=== PATIENT | male | born 1985 | race Caucasian/White ===

== ENCOUNTER 2019-01-06 13:40 | Emergency (ER) | payer SELFPAY ==
[2019-01-06] MEDS ORDERED: Diph,Pert(Acell),Tet Vac 0.5 ML SYR IM ONE (14:19)
--- NOTE | 2019-01-06 14:19 | Emergency Department Record ---
History of Present Illness - General Chief Complaint: Laceration(s) Stated Complaint: LACERATION Time Seen by Provider: 01/06/19 14:17 Source: Patient Mode of Arrival: Ambulatory Limitations: No limitations - History of Present Illness Initial Commments: Laceration to the left index finger cutting with a razor knife at work today just [employer]. Right hand dominate. Bleeding at work with dressing applied. Last Td unknown. Place: Home Context: Accidental Associated Symptoms: None Treatments Prior to Arrival: Bandage - Hilario Coma Scale Eye Response: (4) Open spontaneously Motor Response: (6) Obeys commands Verbal Response: (5) Oriented Hilario Total: 15 - Related Data Hx Tetanus Toxoid Vaccination: No Patient Tetanus UTD (within 5 yrs): No Home Medications Medication Instructions Recorded Confirmed Last Taken Bupropion HCl [Wellbutrin Xl] 300 mg PO DAILY 01/06/19 01/06/19 Unknown Hydroxyzine HCl 10 mg PO QHS 01/06/19 01/06/19 Unknown Olanzapine [Zyprexa] 7.5 mg PO QHS 01/06/19 01/06/19 Unknown Oxcarbazepine [Trileptal] 300 mg PO BID 01/06/19 01/06/19 Unknown Propranolol HCl 10 mg PO DAILY 01/06/19 01/06/19 Unknown Allergies Allergy/AdvReac Type Severity Reaction Status Date / Time No Known Drug Allergies Allergy Verified 01/06/19 13:50 Travel Screening - Travel/Exposure Within Last 30 Days Have you traveled within the last 30 days?: No Review of Systems Constitutional: Denies: Chills, Fever Eyes: Denies: Eye discharge ENT: Denies: Congestion Respiratory: Denies: Cough Cardiovascular: Denies: Arrhythmia Endocrine: Denies: Fatigue Gastrointestinal: Denies: Abdominal pain Musculoskeletal: Reports: As per HPI Neurological: Denies: Headache, Seizure, Tingling Psychiatric: Reports: Anxiety Past Medical History - SOCIAL HISTORY Smoking Status: Never smoker Alcohol Use: None Drug Use: None - RESPIRATORY Hx Respiratory Disorders: No - CARDIOVASCULAR Hx Cardio Disorders: Yes Hx Hypertension: Yes - NEURO Hx Neuro Disorders: No - GI Hx GI Disorders: No - Hx Genitourinary Disorders: No - ENDOCRINE Hx Endocrine Disorders: No - PSYCH Hx Psych Problems: No - HEMATOLOGY/ONCOLOGY Hx Hematology/Oncology Disorders: No Family Medical History Any Significant Family History?: No Physical Exam - General General Appearance: Alert, Oriented x3, Cooperative, No acute distress - Head Head exam: Atraumatic - Eye Eye exam: PERRL - ENT ENT exam: Mucous membranes moist Nasal Exam: Normal inspection - Extremities Extremities exam: Other (left ring finger with 3 cm lac to the radial aspect prox phalynx deep into the tendon sheath. No tendon laceration seen of exam thru full ROM flex and ext. Good motor tone into flex/ext. Snesation intact to distal testing IF bilateral. No FB or nerve seen in wound with tournequet in place. ) - Neurological Neurological exam: Alert, Normal gait, Oriented X3 - Skin Type of lesion: Laceration Course Vital Signs 01/06/19 13:44 Temperature 97.7 F Pulse Rate 80 Respiratory 20 Rate Blood Pressure 162/105 Pulse Ox 96 - Reevaluation(s) Reevaluation #1: 01/06/19 14:23 Seen and exam. Lac explored with luisa tourniquet in place and excellent homeostasis. No nerve or FB seen. Lac in to radial aspect of digit and tendon sheath. Tendon appears intact with testing. Procedures - Nerve Block Time Out Performed: Yes Local Anesthetic Used: Lidocaine 2% Side: Left Nerve Blocks: Digital Procedure Successful: Yes Complications: None Patient Tolerated Procedure: Good Disposition Disposition: Discharge Clinical Impression: Laceration of left index finger Qualifiers: Encounter type: initial encounter Damage to nail status: unspecified Foreign body presence: without foreign body Qualified Code(s): S61.211A - Laceration without foreign body of left index finger without damage to nail, initial encounter Disposition: Home, Self-Care Condition: (1) Good Instructions: Laceration (ED) Additional Instructions: Sutures out in 7-10 days Keep clean and dry for 48 hours. Return here as needed. Forms: Patient Portal Access Time of Disposition: 14:28 Quality - Quality Measures Quality Measures: N/A - Blood Pressure Screening Does Patient Have Any of the Following: No Blood Pressure Classification: Hypertensive Reading Systolic Measurement: 162 Diastolic Measurement: 105 Screening for High Blood Pressure: < Pre-Hypertensive BP, F/U Documented > [G8950] Pre-Hypertensive Follow-up Interventions: Follow-up with rescreen every year. Laceration - Other - Time Out Informed consent:: Informed consent obtained Confirmed first & last name, , procedure, correct site?: Yes - Location Location of laceration:: Left Laceration located on:: Finger Laceration digit detail:: 1st Length of laceration:: 3 Length of laceration:: cm Hand/Finger: 1 - 3 cm lac - Clean and Prep Laceration cleaning method:: Cleansed, Copious Irrigation Laceration cleaning agent:: Normal Saline - Local Anesthetic Lidocaine used:: 2% Lidocaine dose:: 2 mL - Medication Medicated for procedure?: No - Procedural Detail Foreign body in the wound?: No Undermining was preformed?: No Skin suture pattern:: Interrupted Suture material/size:: 4-0: Prolene Number of skin sutures:: 4 - Post Procedural Detail Complications:: No Procedure Tolerated by Patient:: Well
== END 2019-01-06 14:46 | disposition home or self-care (01) ==
LOC: ER 13:40
DX: S61.211A Laceration without foreign body of left index finger without damage to nail, initial encounter (principal); W45.8XXA Other foreign body or object entering through skin, initial encounter; Y92.89 Other specified places as the place of occurrence of the external cause; Y99.0 Civilian activity done for income or pay
CPT/HCPCS: 12042; 90715; 96372; 99283

== ENCOUNTER 2019-01-13 16:05 | Emergency (ER) | payer SELFPAY ==
--- NOTE | 2019-01-13 16:18 | Emergency Department Record ---
History of Present Illness - General Stated Complaint: SUTURE REMOVAL Time Seen by Provider: 01/13/19 16:07 Source: Patient Mode of arrival: Ambulatory Limitations: No limitations - History of Present Illness Initial Comments: 33 yo male presents for a wound check and possible suture removal. He injured his left index finger with a razor blade. He had sutures placed on 01/06 7 days ago. He states he is having trouble flexing the finger fully. No warmth, pus or drainage. The pain is mild. The note from the original visit noted a tendon sheath involvement. MD Complaint: Suture/staple removal, Wound re-check -: Week(s) (1) Initial Visit For: Laceration Returns Today for: Wound recheck Symptoms Since Prior Visit: Other (The finger is stiff to flexion) Associated Symptoms: None - Related Data Previous Rx's Medication Instructions Recorded Cephalexin [Keflex] 500 mg PO TID #21 cap 01/13/19 Allergies Allergy/AdvReac Type Severity Reaction Status Date / Time No Known Drug Allergies Allergy Verified 01/06/19 13:50 Review of Systems Constitutional: Denies: Chills, Fever, Malaise, Weakness Eyes: Denies: Eye discharge ENT: Denies: Congestion, Throat pain Respiratory: Denies: Cough Cardiovascular: Denies: Chest pain, Syncope Endocrine: Denies: Fatigue Gastrointestinal: Denies: Abdominal pain, Diarrhea, Nausea, Vomiting Genitourinary: Denies: Dysuria, Frequency, Hematuria Musculoskeletal: Reports: Arthralgia. Denies: Back pain, Myalgia Skin: Denies: Bruising, Change in color, Rash Neurological: Denies: Numbness, Weakness Psychiatric: Denies: Anxiety Hematological/Lymphatic: Denies: Easy bleeding, Easy bruising Past Medical History - SOCIAL HISTORY Smoking Status: Never smoker Drug Use: None - RESPIRATORY Hx Respiratory Disorders: No - CARDIOVASCULAR Hx Cardio Disorders: Yes Hx Hypertension: Yes - NEURO Hx Neuro Disorders: No - GI Hx GI Disorders: No - Hx Genitourinary Disorders: No - ENDOCRINE Hx Endocrine Disorders: No - PSYCH Hx Psych Problems: No - HEMATOLOGY/ONCOLOGY Hx Hematology/Oncology Disorders: No Physical Exam - General General Appearance: Alert, Oriented x3, Cooperative, No acute distress Limitations: No limitations - Head Head exam: Atraumatic, Normal inspection - Eye Eye exam: Normal appearance - ENT ENT exam: Normal exam - Cardiovascular Peripheral Pulses: 2+: Radial (L) - Extremities Extremities exam: Joint swelling, Normal capillary refill. negative: Full ROM Image of Hand: 1 - The area is non warm and minimally tender. The sutures are intact. The wound is intact. No external signs of infection. He has full flexion at the MCP. He has approximately 20 degrees of flexion at the PIP and 30 at the DIP. He states it is stiff. No erythema, no drainage. The proximal flexer tendon is not tender. No extensor tenderness. - Neurological Neurological exam: Alert, Oriented X3. negative: Motor sensory deficit - Psychiatric Psychiatric exam: Normal affect, Normal mood - Skin Skin exam: Dry, Intact, Normal color, Warm Course - Reevaluation(s) Reevaluation #1: 01/13/19 16:49 The finger was examined The laceration is on the side extending to the extensor side He does not have weakness but he has stiffness with attempts at flexion The finger at this time does not appear infected 1. I recommend more than the 7 days it has been prior to suture removal given the potential tension on the wound 2. I recommend hand surgery referral due to the stiff feeling in the finger with attempts at movement. He was given number to call for follow up. He was splint in a neutral position for support and protection of possible tendon injury. Disposition Disposition: Discharge Clinical Impression: Laceration of left index finger Qualifiers: Encounter type: initial encounter Damage to nail status: unspecified Foreign body presence: unspecified Qualified Code(s): S61.211A - Laceration without foreign body of left index finger without damage to nail, initial encounter Finger laceration with complication Qualifiers: Encounter type: initial encounter Qualified Code(s): S61.219A - Laceration without foreign body of unspecified finger without damage to nail, initial encounter Disposition: Home, Self-Care Condition: (1) Good Instructions: Tendon Laceration (ED) Additional Instructions: Use the splint for support and comfort Call the numbers provided for a hand surgery follow up No lifting or work with the left index finger until follow up Take the antibiotic until gone or changed by the hand surgeon Suture removal in 3 days or by the hand surgeon Prescriptions: Cephalexin [Keflex] 500 mg PO TID #21 cap Referrals: Michelle De La Cruz M.D. [MEDICAL DOCTOR] - DOUGLAS PASTOR M.D. [MEDICAL DOCTOR] - Forms: Patient Portal Access Time of Disposition: 16:24 Quality - Quality Measures Quality Measures: N/A - Blood Pressure Screening Does Patient Have Any of the Following: No Blood Pressure Classification: Hypertensive Reading Systolic Measurement: 163 Diastolic Measurement: 105 Screening for High Blood Pressure: < Pre-Hypertensive BP, F/U Documented > [G8950] Pre-Hypertensive Follow-up Interventions: Referral to alternative/primary care pablo card.
== END 2019-01-13 16:50 | disposition home or self-care (01) ==
LOC: ER 16:05
DX: S61.211D Laceration without foreign body of left index finger without damage to nail, subsequent encounter (principal); W45.8XXD Other foreign body or object entering through skin, subsequent encounter; Y99.0 Civilian activity done for income or pay
CPT/HCPCS: 99282